=== PATIENT | female | born 1995 | race Caucasian/White ===

== ENCOUNTER 2018-07-30 17:17 | Emergency (ER) | payer OTHER ==
[2018-07-30] MEDS ORDERED: ONDANSETRON ODT 4 MG TAB PO STA (18:01)
--- NOTE | 2018-07-30 18:10 | ED ---
Abdominal Pain HPI - General Source: patient Mode of arrival: ambulatory Limitations: no limitations - History of Present Illness MD Complaint: abdominal pain, flank pain -: week(s) (1) Location: diffuse, RLQ Quality: cramping Consistency: constant Improves With: nothing Worsens With: nothing Associated Symptoms: nausea <Mabel Bah - Last Filed: 07/30/18 18:04> <Mehul Cortez - Last Filed: 07/30/18 21:43> - General Chief Complaint: Abdominal Pain Stated Complaint: abdominal pain Time Seen by Provider: 07/30/18 17:42 - History of Present Illness Initial Comments: 22-year-old female presents with diffuse abdominal pain for the last week. Patient states she always has some generalized abdominal discomfort due to having some difficulty after having C. diff but this is different. Patient states feels on the right lower area of the most but it's diffuse. Patient states she feels slightly nauseous. Patient states she feels hungry but since she eats she gets nauseous and can eat. Patient has not been vomiting. Patient denies any dysuria but does have some right-sided back pain. Patient has had an infected ovarian cyst as well. Patient has had her appendix out. Patient is on Mirena for control. Patient has not had a regular cycle in about 3 years. Patient did have a colonoscopy about in the last year which did have polyps patient does not have to get another one for 3 years. Patient able to pass gas. Patient denies any abnormal vaginal discharge. No change of bowel movements patient had a normal bowel movement today. (Mabel Bah) - Related Data Allergies Allergy/AdvReac Type Severity Reaction Status Date / Time nitrofurantoin Allergy Nausea & Verified 07/30/18 17:26 Vomiting Review of Systems ROS Other: All systems not noted in ROS Statement are negative. Constitutional: Denies: fever, chills Gastrointestinal: Reports: abdominal pain, nausea. Denies: vomiting, diarrhea, constipation, hematemesis Skin: Denies: rash Neurological: Denies: headache <Mabel Bah - Last Filed: 07/30/18 18:04> ROS Other: All systems not noted in ROS Statement are negative. <Mehul Cortez - Last Filed: 07/30/18 21:43> ROS Statement: Those systems with pertinent positive or pertinent negative responses have been documented in the HPI. Past Medical History Additional Past Medical History / Comment(s): Ovarian Cyst, pneuopericardium & pneumomediastinum 2017, mass on colon (believed benign) History of Any Multi-Drug Resistant Organisms: C-DIFF Date of last positivie culture/infection: 04/2017 MDRO Source:: stool Past Surgical History: Appendectomy Additional Past Surgical History / Comment(s): colonoscopy with polyp removal Past Psychological History: No Psychological Hx Reported Smoking Status: Never smoker Past Alcohol Use History: Occasional Past Drug Use History: None Reported <Mabel Bah - Last Filed: 07/30/18 18:04> General Exam Limitations: no limitations General appearance: alert, in no apparent distress Head exam: Present: atraumatic, normocephalic, normal inspection Eye exam: Present: normal appearance, PERRL, EOMI. Absent: scleral icterus, conjunctival injection, periorbital swelling ENT exam: Present: normal exam, mucous membranes moist Respiratory exam: Present: normal lung sounds bilaterally. Absent: respiratory distress, wheezes, rales, rhonchi, stridor Cardiovascular Exam: Present: regular rate, normal rhythm, normal heart sounds. Absent: systolic murmur, diastolic murmur, rubs, gallop, clicks GI/Abdominal exam: Present: soft, tenderness (general x 4 ), guarding (general x 4), normal bowel sounds. Absent: distended, rebound, rigid Neurological exam: Present: alert, oriented X3, CN II-XII intact Psychiatric exam: Present: normal affect, normal mood Skin exam: Present: warm, dry, intact, normal color. Absent: rash <Mabel Bah - Last Filed: 07/30/18 18:04> Vital Signs 07/30/18 07/30/18 17:19 20:27 Temperature 98.3 F 98.9 F Pulse Rate 90 91 Respiratory 16 18 Rate Blood Pressure 119/77 115/55 O2 Sat by Pulse 100 99 Oximetry Medical Decision Making <Mabel Bah - Last Filed: 07/30/18 18:04> - Lab Data Result diagrams: 07/30/18 17:41 07/30/18 17:41 <Mehul Cortez - Last Filed: 07/30/18 21:43> - Medical Decision Making 22-year-old female presenting with generalized abdominal pain for the past one week. Patient's care was signed out awaiting imaging and laboratory studies. Patient reevaluated, she has soft abdomen, mild diffuse tenderness, no rebound or guarding. Patient is overall well-appearing with stable vital signs. CBC, CMP, urinalysis are unremarkable. X-rays obtained which is negative for obstruction or free air, patient does receive an ultrasound of the abdomen which is negative for any acute findings including normal gallbladder with no signs of acute cholecystitis. She is status post appendectomy. Symptoms do appear to be somewhat chronic in nature. She states she has had ongoing abdominal pain for some time. She will follow-up with her primary care physician who is aware of these symptoms. Trauma with worsening or changing symptoms. (Mehul Cortez) - Lab Data Lab Results 07/30/18 07/30/18 07/30/18 Range/Units 17:41 17:41 17:41 WBC 10.6 (3.8-10.6) k/uL RBC 4.67 (3.80-5.40) m/uL Hgb 14.3 (11.4-16.0) gm/dL Hct 42.9 (34.0-46.0) % MCV 91.9 (80.0-100.0) fL MCH 30.6 (25.0-35.0) pg MCHC 33.4 (31.0-37.0) g/dL RDW 12.2 (11.5-15.5) % Plt Count 355 (150-450) k/uL Neutrophils % 68 % Lymphocytes % 25 % Monocytes % 4 % Eosinophils % 1 % Basophils % 1 % Neutrophils # 7.2 (1.3-7.7) k/uL Lymphocytes # 2.7 (1.0-4.8) k/uL Monocytes # 0.4 (0-1.0) k/uL Eosinophils # 0.1 (0-0.7) k/uL Basophils # 0.1 (0-0.2) k/uL Sodium 140 (137-145) mmol/L Potassium 3.7 (3.5-5.1) mmol/L Chloride 105 (98-107) mmol/L Carbon Dioxide 24 (22-30) mmol/L Anion Gap 11 mmol/L BUN 8 (7-17) mg/dL Creatinine 0.61 (0.52-1.04) mg/dL Est GFR (CKD-EPI)AfAm >90 (>60 ml/min/1.73 sqM) Est GFR (CKD-EPI)NonAf >90 (>60 ml/min/1.73 sqM) Glucose 90 (74-99) mg/dL Calcium 9.8 (8.4-10.2) mg/dL Total Bilirubin 0.5 (0.2-1.3) mg/dL AST 24 (14-36) U/L ALT 30 (9-52) U/L Alkaline Phosphatase 70 (38-126) U/L Total Protein 8.4 H (6.3-8.2) g/dL Albumin 4.7 (3.5-5.0) g/dL Amylase 57 (30-110) U/L Lipase 58 (23-300) U/L Urine Color Urine Appearance (Clear) Urine pH (5.0-8.0) Ur Specific [place] (1.001-1.035) Urine Protein (Negative) Urine Glucose (UA) (Negative) Urine Ketones (Negative) Urine Blood (Negative) Urine Nitrite (Negative) Urine Bilirubin (Negative) Urine Urobilinogen (<2.0) mg/dL Ur Leukocyte Esterase (Negative) Urine RBC (0-5) /hpf Urine WBC (0-5) /hpf Ur Squamous Epith Cells (0-4) /hpf Urine Mucus (None) /hpf Urine HCG, Qual Not Detected (Not Detectd) 07/30/18 Range/Units 17:41 WBC (3.8-10.6) k/uL RBC (3.80-5.40) m/uL Hgb (11.4-16.0) gm/dL Hct (34.0-46.0) % MCV (80.0-100.0) fL MCH (25.0-35.0) pg MCHC (31.0-37.0) g/dL RDW (11.5-15.5) % Plt Count (150-450) k/uL Neutrophils % % Lymphocytes % % Monocytes % % Eosinophils % % Basophils % % Neutrophils # (1.3-7.7) k/uL Lymphocytes # (1.0-4.8) k/uL Monocytes # (0-1.0) k/uL Eosinophils # (0-0.7) k/uL Basophils # (0-0.2) k/uL Sodium (137-145) mmol/L Potassium (3.5-5.1) mmol/L Chloride (98-107) mmol/L Carbon Dioxide (22-30) mmol/L Anion Gap mmol/L BUN (7-17) mg/dL Creatinine (0.52-1.04) mg/dL Est GFR (CKD-EPI)AfAm (>60 ml/min/1.73 sqM) Est GFR (CKD-EPI)NonAf (>60 ml/min/1.73 sqM) Glucose (74-99) mg/dL Calcium (8.4-10.2) mg/dL Total Bilirubin (0.2-1.3) mg/dL AST (14-36) U/L ALT (9-52) U/L Alkaline Phosphatase (38-126) U/L Total Protein (6.3-8.2) g/dL Albumin (3.5-5.0) g/dL Amylase (30-110) U/L Lipase (23-300) U/L Urine Color Yellow Urine Appearance Cloudy H (Clear) Urine pH 6.5 (5.0-8.0) Ur Specific [place]ner 1.026 (1.001-1.035) Urine Protein 1+ H (Negative) Urine Glucose (UA) Negative (Negative) Urine Ketones 1+ H (Negative) Urine Blood Negative (Negative) Urine Nitrite Negative (Negative) Urine Bilirubin Negative (Negative) Urine Urobilinogen <2.0 (<2.0) mg/dL Ur Leukocyte Esterase Negative (Negative) Urine RBC 1 (0-5) /hpf Urine WBC 2 (0-5) /hpf Ur Squamous Epith Cells 11 H (0-4) /hpf Urine Mucus Moderate H (None) /hpf Urine HCG, Qual (Not Detectd) Disposition <Mabel Bah - Last Filed: 07/30/18 18:04> Is patient prescribed a controlled substance at d/c from ED?: No Time of Disposition: 21:43 <Mehul Cortez - Last Filed: 07/30/18 21:43> Clinical Impression: Abdominal pain Disposition: HOME SELF-CARE Condition: Good Instructions: Abdominal Pain (ED) Referrals: Miguel Angel Church MD [Primary Care Provider] - 1-2 days
[2018-07-30 18:16] LABS: Basophils # (A) 0.1 k/uL (0-0.2); Basophils % (A) 1 %; Eosinophils # (A) 0.1 k/uL (0-0.7); Eosinophils % (A) 1 %; HCT 42.9 % (34.0-46.0); HGB 14.3 gm/dL (11.4-16.0); Lymphocytes # (A) 2.7 k/uL (1.0-4.8); Lymphocytes % (A) 25 %; MCH 30.6 pg (25.0-35.0); MCHC 33.4 g/dL (31.0-37.0); MCV 91.9 fL (80.0-100.0); Mean Platelet Volume 6.9; Monocytes # (A) 0.4 k/uL (0-1.0); Monocytes % (A) 4 %; Neutrophils # (A) 7.2 k/uL (1.3-7.7); Neutrophils % (A) 68 %; Platelet Count 355 k/uL (150-450); RBC 4.67 m/uL (3.80-5.40); RDW 12.2 % (11.5-15.5); WBC 10.6 k/uL (3.8-10.6)
[2018-07-30 18:33] LABS: ALT 30 U/L (9-52); AST 24 U/L (14-36); Albumin 4.7 g/dL (3.5-5.0); Alkaline Phosphatase 70 U/L (38-126); Amylase 57 U/L (30-110); Anion Gap 11 mmol/L; Blood Urea Nitrogen 8 mg/dL (7-17); Calcium 9.8 mg/dL (8.4-10.2); Carbon Dioxide 24 mmol/L (22-30); Chloride 105 mmol/L (98-107); Glucose 90 mg/dL (74-99); Lipase 58 U/L (23-300); Potassium 3.7 mmol/L (3.5-5.1); Sodium 140 mmol/L (137-145); Total Bilirubin 0.5 mg/dL (0.2-1.3); Total Protein 8.4 g/dL (6.3-8.2)
[2018-07-30 18:44] LABS: Appearance,Urine Cloudy (Clear); Bilirubin,Urine Negative (Negative); Blood,Urine Negative (Negative); Color,Urine Yellow; Glucose,Urine (UA) Negative (Negative); Ketones,Urine 1+ (Negative); Leukocyte Esterase,Urine Negative (Negative); Mucus,Urine Moderate /hpf; Nitrite,Urine Negative (Negative); PH, Urine 6.5 (5.0-8.0); Protein,Urine 1+ (Negative); RBC,Urine 1 /hpf (0-5); Specific Gravity,Urine 1.026 (1.001-1.035); Squamous Epithelial Cell,Urine 11 /hpf (0-4); Urobilinogen,Urine <2.0 mg/dL (<2.0); WBC,Urine 2 /hpf (0-5)
--- NOTE | 2018-07-30 19:22 | XR ---
EXAMINATION TYPE: XR abdomen complete w decub DATE OF EXAM: 07/30/2018 COMPARISON: NONE HISTORY: Abdominal pain TECHNIQUE: Supine and upright abdomen FINDINGS: Bowel gas pattern is normal. There is no sign of intestinal obstruction or pneumoperitoneum. Fecal pa ttern is normal. There is IUD noted. There are no pathologic calcifications over the kidneys. Lung ba ses are clear. IMPRESSION: Nonacute abdomen.
[2018-07-30 20:28] VITALS: RESP 18
--- NOTE | 2018-07-30 20:40 | US ---
EXAMINATION TYPE: US abdomen complete DATE OF EXAM: 07/30/2018 COMPARISON: NONE CLINICAL HISTORY: Pain. EXAM MEASUREMENTS: Liver Length: 13.9 cm Gallbladder Wall: 0.2 cm CBD: 0.4 cm Spleen: 9.4 cm Right Kidney: 9.9 x 3.6 x 5.1 cm Left Kidney: 10.5 x 5.0 x 5.1 cm Pancreas: wnl Liver: wnl Gallbladder: wnl Evidence for sonographic Sal[place]'s sign: no CBD: wnl Spleen: wnl Right Kidney: wnl Left Kidney: wnl Upper IVC: wnl Abd Aorta: wnl There is no free fluid. There is a sonolucent gallbladder. IMPRESSION: Normal complete abdominal sonogram. No gallstones or dilated ducts.
[2018-07-30 21:49] VITALS: BP 113/79; PULSE 83; TEMP 97.8
== END 2018-07-30 21:49 | disposition home or self-care (01) ==
LOC: EC 17:17
DX: R10.84 Generalized abdominal pain (principal); R11.0 Nausea; Z87.42 Personal history of other diseases of the female genital tract; Z88.1 Allergy status to other antibiotic agents; Z90.49 Acquired absence of other specified parts of digestive tract
CPT/HCPCS: 36415; 74021; 76700; 80053; 81001; 81025; 82150; 83690; 85025; 99284

== ENCOUNTER 2021-03-19 18:41 | Emergency (ER) | payer OTHER ==
[2021-03-19 19:18] VITALS: RESP 18
[2021-03-19 19:38] LABS: Appearance,Urine Clear (Clear); Bilirubin,Urine Negative (Negative); Blood,Urine Negative (Negative); Color,Urine Colorless; Glucose,Urine (UA) Negative (Negative); Ketones,Urine Negative (Negative); Leukocyte Esterase,Urine Negative (Negative); Nitrite,Urine Negative (Negative); PH, Urine 6.5 (5.0-8.0); Protein,Urine Negative (Negative); Specific Gravity,Urine 1.003 (1.001-1.035); Urobilinogen,Urine <2.0 mg/dL (<2.0)
[2021-03-19 22:16] LABS: Basophils % (A) 0 %; Eosinophils # (A) 0.1 k/uL (0-0.7); Eosinophils % (A) 1 %; HCT 38.4 % (34.0-46.0); HGB 13.5 gm/dL (11.4-16.0); Lymphocytes # (A) 3.4 k/uL (1.0-4.8); Lymphocytes % (A) 34 %; MCH 31.9 pg (25.0-35.0); MCHC 35.2 g/dL (31.0-37.0); MCV 90.7 fL (80.0-100.0); Mean Platelet Volume 7.4; Monocytes # (A) 0.3 k/uL (0-1.0); Monocytes % (A) 3 %; Neutrophils # (A) 6.2 k/uL (1.3-7.7); Neutrophils % (A) 61 %; Platelet Count 284 k/uL (150-450); RBC 4.24 m/uL (3.80-5.40); RDW 11.9 % (11.5-15.5); WBC 10.1 k/uL (3.8-10.6)
[2021-03-19 22:29] LABS: ALT 15 U/L (4-34); AST 26 U/L (14-36); African American GFR (CKD) >90 (>60 ml/min/1.73 sqM); Albumin 4.6 g/dL (3.5-5.0); Alkaline Phosphatase 57 U/L (38-126); Anion Gap 9 mmol/L; Blood Urea Nitrogen 16 mg/dL (7-17); Calcium 9.7 mg/dL (8.4-10.2); Carbon Dioxide 23 mmol/L (22-30); Chloride 104 mmol/L (98-107); Glucose 85 mg/dL (74-99); Lipase 107 U/L (23-300); Non-African American GFR(CKD) >90 (>60 ml/min/1.73 sqM); Sodium 136 mmol/L (137-145); Total Bilirubin 0.5 mg/dL (0.2-1.3); Total Protein 7.6 g/dL (6.3-8.2)
--- NOTE | 2021-03-19 22:44 | US ---
EXAMINATION TYPE: US transvaginal DATE OF EXAM: 03/19/2021 COMPARISON: NONE CLINICAL HISTORY: Hx ovarian cyst, right lower quadrant pain. patient has RLQ pain x 2 weeks, h/o lar ge cysts that have required surgery in the past, Mirena IUD 2018, G0, irregular cycles since IUD TECHNIQUE: TV. Transvaginal sonographic images Date of LMP: irregular, IUD EXAM MEASUREMENTS: Uterus: 7.1 x 3.8 x 3.3 cm Endometrial Stripe: 0.4 cm Right Ovary: 7.4 x 8.0 x 5.4 cm Left Ovary: 2.9 x 2.9 x 1.8 cm 1. Uterus: Anteverted wnl 2. Endometrium: IUD noted within E[facility], wnl 3. Right Ovary: 6.0 x 7.0 x 5.0cm simple cyst seen 4. Left Ovary: wnl Spectral, color and waveform doppler imaging shows good arterial and venous flow within the ovaries ; there is no evidence for ovarian torsion. 5. Bilateral Adnexa: wnl 6. Posterior cul-de-sac: wnl IMPRESSION: There is a large simple cyst on the right ovary. No evidence of ovarian torsion. Normal uterus. IUD i s in good position. No free fluid.
--- NOTE | 2021-03-19 23:00 | ED ---
Abdominal Pain HPI - General Chief Complaint: Abdominal Pain Stated Complaint: Ovarian cyst Time Seen by Provider: 03/19/21 20:44 Source: patient Mode of arrival: ambulatory Limitations: no limitations - History of Present Illness Initial Comments: 25-year-old female patient presents to the emergency department today for evaluation of right lower quadrant abdominal pain. States she does have history of ovarian cysts, has had previous ovarian cyst surgery and appendectomy. States for the last couple of weeks she has been having intermittent pain to the area. Does report normal bowel movements. Denies any hematuria, dysuria, urinary frequency, urinary urgency. Denies any pain radiation to her back. States she is not taking any medication for pain currently. Denies fever or chills. Denies chance of . States she does have an IUD and is concerned about its positioning. Patient denies any recent rash, cough, shortness of breath, chest pain, nausea, vomiting, diarrhea, constipation, back pain, numbness, tingling, dizziness, weakness, headache, visual changes, or any other complaints. - Related Data Home Medications Medication Instructions Recorded Confirmed Multivitamins, Thera [Multivitamin 1 tab PO DAILY 03/19/21 03/19/21 (formulary)] Allergies Allergy/AdvReac Type Severity Reaction Status Date / Time nitrofurantoin Allergy Nausea & Verified 03/19/21 22:38 Vomiting Review of Systems ROS Statement: Those systems with pertinent positive or pertinent negative responses have been documented in the HPI. ROS Other: All systems not noted in ROS Statement are negative. Past Medical History Past Medical History: No Reported History Additional Past Medical History / Comment(s): Ovarian Cyst, pneuopericardium & pneumomediastinum 2017, mass on colon (believed benign) History of Any Multi-Drug Resistant Organisms: C-DIFF Date of last positivie culture/infection: 04/2017 MDRO Source:: stool Past Surgical History: Appendectomy Additional Past Surgical History / Comment(s): colonoscopy with polyp removal Past Psychological History: Anxiety Smoking Status: Never smoker Past Alcohol Use History: Occasional Past Drug Use History: Marijuana General Exam Limitations: no limitations General appearance: alert, in no apparent distress, other (This is a well- developed, well-nourished adult female patient in no acute distress. Vital signs upon presentation are temperature 98.1F, pulse 73, respirations 18, blood pressure 114/77, pulse ox 99% on room air.) Eye exam: Present: normal appearance, PERRL, EOMI. Absent: scleral icterus, conjunctival injection, periorbital swelling ENT exam: Present: normal exam, normal oropharynx, mucous membranes moist Respiratory exam: Present: normal lung sounds bilaterally. Absent: respiratory distress, wheezes, rales, rhonchi, stridor Cardiovascular Exam: Present: regular rate, normal rhythm, normal heart sounds. Absent: systolic murmur, diastolic murmur, rubs, gallop, clicks GI/Abdominal exam: Present: soft, tenderness (Right lower quadrant tenderness), normal bowel sounds. Absent: distended, guarding, rebound, rigid Neurological exam: Present: alert, oriented X3, CN II-XII intact Psychiatric exam: Present: normal affect, normal mood Skin exam: Present: warm, dry, intact, normal color. Absent: rash Course Vital Signs 03/19/21 03/19/21 19:15 23:10 Temperature 98.1 F 98 F Pulse Rate 73 76 Respiratory 18 18 Rate Blood Pressure 114/77 116/76 O2 Sat by Pulse 99 100 Oximetry Medical Decision Making - Medical Decision Making 25-year-old female patient presents to the emergency department today for evaluation of right lower quadrant abdominal pain. She is concerned about possible ovarian cyst or malpositioning of her IUD. Physical examination did reveal right lower quadrant abdominal tenderness. Labs reviewed and are unremarkable. Urinalysis is negative for infection. She is not . Ultrasound was obtained and did reveal a 7 cm cyst of the right ovary, appears simple. IUD is in good position. I did discuss findings and results with her. She be discharged follow-up with her orthotic technician for further evaluation. We did discuss risk of torsion she is instructed to return if her pain worsens or changes. Return parameters were discussed in detail. She verbalizes understanding and agrees with this plan. Case is discussed with my attending Dr. Tadeo. - Lab Data Result diagrams: 03/19/21 21:53 03/19/21 21:53 Lab Results 03/19/21 03/19/21 03/19/21 Range/Units 19:24 19:24 21:53 WBC 10.1 (3.8-10.6) k/uL RBC 4.24 (3.80-5.40) m/uL Hgb 13.5 (11.4-16.0) gm/dL Hct 38.4 (34.0-46.0) % MCV 90.7 (80.0-100.0) fL MCH 31.9 (25.0-35.0) pg MCHC 35.2 (31.0-37.0) g/dL RDW 11.9 (11.5-15.5) % Plt Count 284 (150-450) k/uL MPV 7.4 Neutrophils % 61 % Lymphocytes % 34 % Monocytes % 3 % Eosinophils % 1 % Basophils % 0 % Neutrophils # 6.2 (1.3-7.7) k/uL Lymphocytes # 3.4 (1.0-4.8) k/uL Monocytes # 0.3 (0-1.0) k/uL Eosinophils # 0.1 (0-0.7) k/uL Basophils # 0.0 (0-0.2) k/uL Sodium (137-145) mmol/L Potassium (3.5-5.1) mmol/L Chloride (98-107) mmol/L Carbon Dioxide (22-30) mmol/L Anion Gap mmol/L BUN (7-17) mg/dL Creatinine (0.52-1.04) mg/dL Est GFR (CKD-EPI)AfAm (>60 ml/min/1.73 sqM) Est GFR (CKD-EPI)NonAf (>60 ml/min/1.73 sqM) Glucose (74-99) mg/dL Calcium (8.4-10.2) mg/dL Total Bilirubin (0.2-1.3) mg/dL AST (14-36) U/L ALT (4-34) U/L Alkaline Phosphatase (38-126) U/L Total Protein (6.3-8.2) g/dL Albumin (3.5-5.0) g/dL Lipase (23-300) U/L Urine Color Colorless Urine Appearance Clear (Clear) Urine pH 6.5 (5.0-8.0) Ur Specific [place] 1.003 (1.001-1.035) Urine Protein Negative (Negative) Urine Glucose (UA) Negative (Negative) Urine Ketones Negative (Negative) Urine Blood Negative (Negative) Urine Nitrite Negative (Negative) Urine Bilirubin Negative (Negative) Urine Urobilinogen <2.0 (<2.0) mg/dL Ur Leukocyte Esterase Negative (Negative) Urine HCG, Qual Not Detected (Not Detectd) 03/19/21 Range/Units 21:53 WBC (3.8-10.6) k/uL RBC (3.80-5.40) m/uL Hgb (11.4-16.0) gm/dL Hct (34.0-46.0) % MCV (80.0-100.0) fL MCH (25.0-35.0) pg MCHC (31.0-37.0) g/dL RDW (11.5-15.5) % Plt Count (150-450) k/uL MPV Neutrophils % % Lymphocytes % % Monocytes % % Eosinophils % % Basophils % % Neutrophils # (1.3-7.7) k/uL Lymphocytes # (1.0-4.8) k/uL Monocytes # (0-1.0) k/uL Eosinophils # (0-0.7) k/uL Basophils # (0-0.2) k/uL Sodium 136 L (137-145) mmol/L Potassium 4.0 (3.5-5.1) mmol/L Chloride 104 (98-107) mmol/L Carbon Dioxide 23 (22-30) mmol/L Anion Gap 9 mmol/L BUN 16 (7-17) mg/dL Creatinine 0.72 (0.52-1.04) mg/dL Est GFR (CKD-EPI)AfAm >90 (>60 ml/min/1.73 sqM) Est GFR (CKD-EPI)NonAf >90 (>60 ml/min/1.73 sqM) Glucose 85 (74-99) mg/dL Calcium 9.7 (8.4-10.2) mg/dL Total Bilirubin 0.5 (0.2-1.3) mg/dL AST 26 (14-36) U/L ALT 15 (4-34) U/L Alkaline Phosphatase 57 (38-126) U/L Total Protein 7.6 (6.3-8.2) g/dL Albumin 4.6 (3.5-5.0) g/dL Lipase 107 (23-300) U/L Urine Color Urine Appearance (Clear) Urine pH (5.0-8.0) Ur Specific [place] (1.001-1.035) Urine Protein (Negative) Urine Glucose (UA) (Negative) Urine Ketones (Negative) Urine Blood (Negative) Urine Nitrite (Negative) Urine Bilirubin (Negative) Urine Urobilinogen (<2.0) mg/dL Ur Leukocyte Esterase (Negative) Urine HCG, Qual (Not Detectd) - Radiology Data Radiology results: report reviewed, image reviewed Transvaginal ultrasound was obtained. Report was reviewed in its entirety. Impression by Dr. Infante shows large simple cyst on the right ovary measuring 6.0 x 7 x 5 cm. No evidence of ovarian torsion. Normal uterus. IUD is in good position. No free fluid. Disposition Clinical Impression: Right ovarian cyst Disposition: HOME SELF-CARE Condition: Good Instructions (If sedation given, give patient instructions): Ovarian Cyst (ED) Additional Instructions: Follow up with OBGYN for recheck as soon as possible. Return for any new, worsening, or concerning symptoms. Is patient prescribed a controlled substance at d/c from ED?: No Referrals: Miguel Angel Church MD [Primary Care Provider] - 1-2 days Time of Disposition: 23:00
[2021-03-19] MEDS ORDERED: ACET/COD 300 MG/30 MG STARTER PACK 6 TAB BTL PO STA (23:02)
[2021-03-19 23:19] VITALS: BP 116/76; PULSE 76; TEMP 98
== END 2021-03-19 23:10 | disposition home or self-care (01) ==
LOC: EC 18:41
DX: N83.291 Other ovarian cyst, right side (principal); F41.9 Anxiety disorder, unspecified; F12.90 Cannabis use, unspecified, uncomplicated
CPT/HCPCS: 36415; 76830; 80053; 81003; 81025; 83690; 85025; 99284

== ENCOUNTER 2021-09-08 02:42 | Emergency (ER) | payer OTHER ==
[2021-09-08 03:00] VITALS: TEMP 98.2
[2021-09-08] MEDS ORDERED: SODIUM CHLORIDE 0.9% 1,000 ML IV STA (03:28)
[2021-09-08] MEDS ORDERED: KETOROLAC 15 MG/ML 1 ML VIAL IVP STA (03:28)
[2021-09-08] MEDS ORDERED: METOCLOPRAMIDE 5 MG/ML 2 ML VIAL IVP STA (03:28)
[2021-09-08 03:57] LABS: Basophils % (A) 0 %; Eosinophils # (A) 0.1 k/uL (0-0.7); Eosinophils % (A) 0 %; HCT 41.7 % (34.0-46.0); HGB 14.2 gm/dL (11.4-16.0); Lymphocytes # (A) 1.4 k/uL (1.0-4.8); Lymphocytes % (A) 9 %; MCH 31.9 pg (25.0-35.0); MCV 93.7 fL (80.0-100.0); Mean Platelet Volume 7.5; Monocytes # (A) 0.3 k/uL (0-1.0); Monocytes % (A) 2 %; Neutrophils % (A) 88 %; Platelet Count 404 k/uL (150-450); RBC 4.45 m/uL (3.80-5.40); RDW 11.7 % (11.5-15.5); WBC 14.8 k/uL (3.8-10.6)
[2021-09-08 04:09] LABS: Appearance,Urine Cloudy (Clear); Bacteria,Urine Occasional /hpf; Bilirubin,Urine Negative (Negative); Blood,Urine Trace (Negative); Color,Urine Yellow; Glucose,Urine (UA) Negative (Negative); Ketones,Urine 2+ (Negative); Leukocyte Esterase,Urine Negative (Negative); Mucus,Urine Many /hpf; Nitrite,Urine Negative (Negative); PH, Urine 5.5 (5.0-8.0); Protein,Urine 1+ (Negative); RBC,Urine 3 /hpf (0-5); Specific Gravity,Urine 1.031 (1.001-1.035); Squamous Epithelial Cell,Urine 5 /hpf (0-4); WBC,Urine 6 /hpf (0-5)
[2021-09-08 04:26] LABS: ALT 13 U/L (4-34); AST 22 U/L (14-36); African American GFR (CKD) >90 (>60 ml/min/1.73 sqM); Albumin 4.7 g/dL (3.5-5.0); Alkaline Phosphatase 59 U/L (38-126); Amylase 71 U/L (30-110); Anion Gap 12 mmol/L; Blood Urea Nitrogen 12 mg/dL (7-17); Calcium 9.9 mg/dL (8.4-10.2); Carbon Dioxide 22 mmol/L (22-30); Chloride 101 mmol/L (98-107); Glucose 125 mg/dL (74-99); Lipase 56 U/L (23-300); Non-African American GFR(CKD) >90 (>60 ml/min/1.73 sqM); Potassium 3.8 mmol/L (3.5-5.1); Sodium 135 mmol/L (137-145); Total Bilirubin 0.4 mg/dL (0.2-1.3); Total Protein 8.5 g/dL (6.3-8.2)
--- NOTE | 2021-09-08 04:46 | XR ---
EXAMINATION TYPE: XR KUB DATE OF EXAM: 09/08/2021 COMPARISON: 07/20/2018 HISTORY: Abdominal pain TECHNIQUE: FINDINGS: Single upright view shows no sign of intestinal obstruction or pneumoperitoneum. Fecal kadie brandi is normal. There is no sign of a mass. There are no pathologic calcifications over the kidneys. B waldo structures are intact. IMPRESSION: Nonacute abdomen. No adverse change.
--- NOTE | 2021-09-08 06:02 | ED ---
Abdominal Pain HPI - General Chief Complaint: Abdominal Pain Stated Complaint: NVD Time Seen by Provider: 09/08/21 03:21 Source: patient Mode of arrival: ambulatory - History of Present Illness MD Complaint: abdominal pain -: days(s) Location: diffuse Radiation: none Migration to: no migration Severity: moderate Quality: cramping, aching Consistency: intermittent Improves With: nothing Worsens With: nothing Associated Symptoms: nausea, constipation - Related Data Home Medications Medication Instructions Recorded Confirmed Multivitamins, Thera [Multivitamin 1 tab PO DAILY 03/19/21 03/19/21 (formulary)] Previous Rx's Medication Instructions Recorded Dicyclomine [Bentyl] 20 mg PO QID #15 tablet 09/08/21 Allergies Allergy/AdvReac Type Severity Reaction Status Date / Time nitrofurantoin Allergy Nausea & Verified 09/08/21 03:00 Vomiting Review of Systems ROS Statement: Those systems with pertinent positive or pertinent negative responses have been documented in the HPI. ROS Other: All systems not noted in ROS Statement are negative. Constitutional: Denies: fever, chills Respiratory: Denies: cough, dyspnea Cardiovascular: Denies: chest pain, palpitations Gastrointestinal: Reports: abdominal pain, nausea, constipation. Denies: vomit ing, hematemesis, melena, hematochezia Genitourinary: Denies: dysuria, hematuria Musculoskeletal: Denies: back pain Skin: Denies: rash Neurological: Denies: headache, weakness, numbness Past Medical History Past Medical History: No Reported History Additional Past Medical History / Comment(s): Ovarian Cyst, pneuopericardium & pneumomediastinum 2017, mass on colon (believed benign), CDiff 2017, IBS History of Any Multi-Drug Resistant Organisms: C-DIFF Date of last positivie culture/infection: 04/2017 MDRO Source:: stool Past Surgical History: Appendectomy Additional Past Surgical History / Comment(s): colonoscopy with polyp removal Past Psychological History: Anxiety Smoking Status: Never smoker Past Alcohol Use History: Occasional Past Drug Use History: Marijuana General Exam General appearance: alert, in no apparent distress Head exam: Present: atraumatic, normocephalic Eye exam: Present: normal appearance. Absent: scleral icterus, conjunctival injection ENT exam: Present: normal oropharynx Neck exam: Present: normal inspection Respiratory exam: Present: normal lung sounds bilaterally. Absent: respiratory distress, wheezes, rales, rhonchi, stridor Cardiovascular Exam: Present: regular rate, normal rhythm, normal heart sounds. Absent: systolic murmur, diastolic murmur, rubs, gallop GI/Abdominal exam: Present: soft, tenderness (mild diffuse tenderness). Absent: distended, guarding, rebound, rigid, mass, pulsatile mass, hernia Extremities exam: Present: normal inspection, normal capillary refill. Absent: pedal edema, calf tenderness Back exam: Present: normal inspection. Absent: CVA tenderness (R), CVA tenderness (L) Neurological exam: Present: alert Skin exam: Present: warm, dry, intact, normal color. Absent: rash Course Vital Signs 09/08/21 09/08/21 02:55 06:36 Temperature 98.2 F Pulse Rate 83 78 Respiratory 24 18 Rate Blood Pressure 95/60 127/84 O2 Sat by Pulse 98 99 Oximetry Medical Decision Making - Lab Data Result diagrams: 09/08/21 03:38 09/08/21 03:38 Lab Results 09/08/21 09/08/21 09/08/21 Range/Units 03:38 03:38 03:38 WBC 14.8 H (3.8-10.6) k/uL RBC 4.45 (3.80-5.40) m/uL Hgb 14.2 (11.4-16.0) gm/dL Hct 41.7 (34.0-46.0) % MCV 93.7 (80.0-100.0) fL MCH 31.9 (25.0-35.0) pg MCHC 34.0 (31.0-37.0) g/dL RDW 11.7 (11.5-15.5) % Plt Count 404 (150-450) k/uL MPV 7.5 Neutrophils % 88 % Lymphocytes % 9 % Monocytes % 2 % Eosinophils % 0 % Basophils % 0 % Neutrophils # 13.0 H (1.3-7.7) k/uL Lymphocytes # 1.4 (1.0-4.8) k/uL Monocytes # 0.3 (0-1.0) k/uL Eosinophils # 0.1 (0-0.7) k/uL Basophils # 0.0 (0-0.2) k/uL Sodium (137-145) mmol/L Potassium (3.5-5.1) mmol/L Chloride (98-107) mmol/L Carbon Dioxide (22-30) mmol/L Anion Gap mmol/L BUN (7-17) mg/dL Creatinine (0.52-1.04) mg/dL Est GFR (CKD-EPI)AfAm (>60 ml/min/1.73 sqM) Est GFR (CKD-EPI)NonAf (>60 ml/min/1.73 sqM) Glucose (74-99) mg/dL Calcium (8.4-10.2) mg/dL Total Bilirubin (0.2-1.3) mg/dL AST (14-36) U/L ALT (4-34) U/L Alkaline Phosphatase (38-126) U/L Total Protein (6.3-8.2) g/dL Albumin (3.5-5.0) g/dL Amylase (30-110) U/L Lipase (23-300) U/L Urine Color Yellow Urine Appearance Cloudy H (Clear) Urine pH 5.5 (5.0-8.0) Ur Specific [place] 1.031 (1.001-1.035) Urine Protein 1+ H (Negative) Urine Glucose (UA) Negative (Negative) Urine Ketones 2+ H (Negative) Urine Blood Trace H (Negative) Urine Nitrite Negative (Negative) Urine Bilirubin Negative (Negative) Urine Urobilinogen 3.0 (<2.0) mg/dL Ur Leukocyte Esterase Negative (Negative) Urine RBC 3 (0-5) /hpf Urine WBC 6 H (0-5) /hpf Ur Squamous Epith Cells 5 H (0-4) /hpf Urine Bacteria Occasional H (None) /hpf Urine Mucus Many H (None) /hpf Urine HCG, Qual Not Detected (Not Detectd) 09/08/21 Range/Units 03:38 WBC (3.8-10.6) k/uL RBC (3.80-5.40) m/uL Hgb (11.4-16.0) gm/dL Hct (34.0-46.0) % MCV (80.0-100.0) fL MCH (25.0-35.0) pg MCHC (31.0-37.0) g/dL RDW (11.5-15.5) % Plt Count (150-450) k/uL MPV Neutrophils % % Lymphocytes % % Monocytes % % Eosinophils % % Basophils % % Neutrophils # (1.3-7.7) k/uL Lymphocytes # (1.0-4.8) k/uL Monocytes # (0-1.0) k/uL Eosinophils # (0-0.7) k/uL Basophils # (0-0.2) k/uL Sodium 135 L (137-145) mmol/L Potassium 3.8 (3.5-5.1) mmol/L Chloride 101 (98-107) mmol/L Carbon Dioxide 22 (22-30) mmol/L Anion Gap 12 mmol/L BUN 12 (7-17) mg/dL Creatinine 0.70 (0.52-1.04) mg/dL Est GFR (CKD-EPI)AfAm >90 (>60 ml/min/1.73 sqM) Est GFR (CKD-EPI)NonAf >90 (>60 ml/min/1.73 sqM) Glucose 125 H (74-99) mg/dL Calcium 9.9 (8.4-10.2) mg/dL Total Bilirubin 0.4 (0.2-1.3) mg/dL AST 22 (14-36) U/L ALT 13 (4-34) U/L Alkaline Phosphatase 59 (38-126) U/L Total Protein 8.5 H (6.3-8.2) g/dL Albumin 4.7 (3.5-5.0) g/dL Amylase 71 (30-110) U/L Lipase 56 (23-300) U/L Urine Color Urine Appearance (Clear) Urine pH (5.0-8.0) Ur Specific [place] (1.001-1.035) Urine Protein (Negative) Urine Glucose (UA) (Negative) Urine Ketones (Negative) Urine Blood (Negative) Urine Nitrite (Negative) Urine Bilirubin (Negative) Urine Urobilinogen (<2.0) mg/dL Ur Leukocyte Esterase (Negative) Urine RBC (0-5) /hpf Urine WBC (0-5) /hpf Ur Squamous Epith Cells (0-4) /hpf Urine Bacteria (None) /hpf Urine Mucus (None) /hpf Urine HCG, Qual (Not Detectd) Disposition Clinical Impression: Abdominal pain Disposition: HOME SELF-CARE Condition: Good Instructions (If sedation given, give patient instructions): Abdominal Pain (ED) Prescriptions: Dicyclomine [Bentyl] 20 mg PO QID #15 tablet Is patient prescribed a controlled substance at d/c from ED?: No Referrals: Jarvis Angel DO [Primary Care Provider] - 1-2 days
[2021-09-08 06:59] VITALS: BP 127/84; PULSE 78; RESP 18
== END 2021-09-08 06:36 | disposition home or self-care (01) ==
LOC: EC 02:42
DX: R10.84 Generalized abdominal pain (principal); F41.9 Anxiety disorder, unspecified; F12.90 Cannabis use, unspecified, uncomplicated; Z90.49 Acquired absence of other specified parts of digestive tract
CPT/HCPCS: 99284; 96374; 96375; 36415; 80053; 82150; 83690; 85025; 81001; 81025; 74018; J2765; J1885

== ENCOUNTER 2022-09-30 12:06 | Emergency (ER) | payer BC, OTHER ==
[2022-09-30 12:30] VITALS: TEMP 98.3
--- NOTE | 2022-09-30 13:00 | XR ---
EXAMINATION TYPE: XR chest 2V DATE OF EXAM: 09/30/2022 COMPARISON: None HISTORY: 26-year-old female with chest pain TECHNIQUE: PA and lateral views FINDINGS: The cardiomediastinal silhouette, aorta, and pulmonary vasculature are within normal limits. Lungs an d pleural spaces are clear. IMPRESSION: No acute cardiopulmonary process.
[2022-09-30] MEDS ORDERED: ASPIRIN 81 MG PO STA (17:38)
--- NOTE | 2022-09-30 17:38 | ED ---
Chest Pain HPI - General Chief Complaint: Chest Pain Stated Complaint: chest pain Time Seen by Provider: 09/30/22 17:12 Source: patient Mode of arrival: ambulatory Limitations: no limitations - History of Present Illness Initial Comments: Patient is 26-year-old woman presenting with substernal chest pain that had come on this morning. The patient states that last week she was not feeling well. Both she and her boyfriend had upper respiratory symptoms, including cough congestion and she had ear pain as well. She had taken some medications and was feeling better but today had onset of the substernal chest pain. She states that it was somewhat reminiscent of episodes she had of pneumomediastinum/pneumopericardium which had occurred 5 or 6 years ago. She states that no definite etiology was found, and she did not have to have any procedure related to those conditions. No anginal type symptoms. MD Complaint: chest pain -: hour(s) Onset: during rest Pain Location: substernal Pain Radiation: none Severity: moderate Quality: aching, other (Denying) Consistency: constant Improves With: nothing Worsens With: nothing Context: recent illness Treatments Prior to Arrival: none - Related Data Home Medications Medication Instructions Recorded Confirmed Multivitamins, Thera [Multivitamin 1 tab PO DAILY 03/19/21 03/19/21 (formulary)] Previous Rx's Medication Instructions Recorded Dicyclomine [Bentyl] 20 mg PO QID #15 tablet 09/08/21 Allergies Allergy/AdvReac Type Severity Reaction Status Date / Time nitrofurantoin Allergy Nausea & Verified 09/30/22 12:30 Vomiting Review of Systems ROS Statement: Those systems with pertinent positive or pertinent negative responses have been documented in the HPI. ROS Other: All systems not noted in ROS Statement are negative. Constitutional: Denies: fever, chills ENT: Denies: congestion Respiratory: Denies: cough, dyspnea Cardiovascular: Denies: chest pain, palpitations, edema, syncope Gastrointestinal: Denies: abdominal pain, nausea, vomiting Genitourinary: Denies: dysuria, hematuria Musculoskeletal: Denies: back pain Skin: Denies: rash Neurological: Denies: headache, weakness, numbness EKG Findings - EKG Results: EKG: interpreted by ERMD, sinus rhythm, normal axis, normal QRS EKG shows: tachycardia (Rates 111 bpm) - Blocks, [place], Hypertrophy, ST Abn: Repolarization changes or abnormalities: nonspecific abnormality, ST segment, and/or T wave Past Medical History Past Medical History: No Reported History Additional Past Medical History / Comment(s): Ovarian Cyst, pneuopericardium & pneumomediastinum 2017, mass on colon (believed benign), CDiff 2017, IBS History of Any Multi-Drug Resistant Organisms: C-DIFF Date of last positivie culture/infection: 04/2017 MDRO Source:: stool Past Surgical History: Appendectomy Additional Past Surgical History / Comment(s): colonoscopy with polyp removal Past Psychological History: Anxiety Smoking Status: Never smoker Past Alcohol Use History: Occasional Past Drug Use History: Marijuana General Exam Limitations: no limitations General appearance: alert, in no apparent distress Head exam: Present: atraumatic, normocephalic Eye exam: Present: normal appearance. Absent: scleral icterus, conjunctival injection Neck exam: Present: normal inspection Respiratory exam: Present: normal lung sounds bilaterally. Absent: respiratory distress, wheezes, rales, rhonchi, stridor, accessory muscle use Cardiovascular Exam: Present: regular rate, normal rhythm, normal heart sounds. Absent: systolic murmur, diastolic murmur, rubs, gallop GI/Abdominal exam: Present: soft. Absent: distended, tenderness, guarding, rebound, rigid, mass Extremities exam: Present: normal inspection, normal capillary refill. Absent: pedal edema, calf tenderness Back exam: Present: normal inspection. Absent: CVA tenderness (R), CVA tenderness (L) Neurological exam: Present: alert Skin exam: Present: warm, dry, intact, normal color. Absent: rash Course Vital Signs 09/30/22 09/30/22 09/30/22 12:27 18:30 19:41 Temperature 98.3 F Pulse Rate 110 H 100 101 H Respiratory 18 20 20 Rate Blood Pressure 111/63 106/89 110/70 O2 Sat by Pulse 96 100 97 Oximetry Chest Pain MDM - MDM Discussed findings with patient who does reveal that she had just completed course of steroids that may account for the leukocytosis. I discussed that I felt that the leukocytosis was still somewhat high, and she needs to have this rechecked this week to ensure that it is returning to baseline. We discussed appropriate further care and follow-up as well as return parameters. Disposition Clinical Impression: Leukocytosis Disposition: HOME SELF-CARE Condition: Good Instructions (If sedation given, give patient instructions): Chest Pain (ED), Leukocytosis (ED) Is patient prescribed a controlled substance at d/c from ED?: No Referrals: Jarvis Angel DO [Primary Care Provider] - 1-2 days
[2022-09-30 17:42] LABS: Basophils # (A) 0.1 k/uL (0-0.2); Basophils % (A) 0 %; Eosinophils # (A) 0.2 k/uL (0-0.7); Eosinophils % (A) 1 %; HCT 40.4 % (34.0-46.0); HGB 13.9 gm/dL (11.4-16.0); Lymphocytes # (A) 1.3 k/uL (1.0-4.8); Lymphocytes % (A) 4 %; MCH 31.5 pg (25.0-35.0); MCHC 34.5 g/dL (31.0-37.0); MCV 91.2 fL (80.0-100.0); Mean Platelet Volume 8.3; Monocytes # (A) 0.4 k/uL (0-1.0); Monocytes % (A) 1 %; Neutrophils # (A) 26.6 k/uL (1.3-7.7); Neutrophils % (A) 93 %; Platelet Count 306 k/uL (150-450); RBC 4.43 m/uL (3.80-5.40); RDW 12.2 % (11.5-15.5); WBC 28.6 k/uL (3.8-10.6)
[2022-09-30 17:51] LABS: ALT 19 U/L (4-34); AST 24 U/L (14-36); African American GFR (CKD) >90 (>60 ml/min/1.73 sqM); Albumin 4.7 g/dL (3.5-5.0); Alkaline Phosphatase 71 U/L (38-126); Anion Gap 6 mmol/L; Blood Urea Nitrogen 10 mg/dL (7-17); Calcium 9.5 mg/dL (8.4-10.2); Carbon Dioxide 25 mmol/L (22-30); Chloride 104 mmol/L (98-107); Glucose 112 mg/dL (74-99); Non-African American GFR(CKD) >90 (>60 ml/min/1.73 sqM); Potassium 4.1 mmol/L (3.5-5.1); Sodium 135 mmol/L (137-145); Total Bilirubin 0.6 mg/dL (0.2-1.3); Total Protein 7.9 g/dL (6.3-8.2)
[2022-09-30 18:37] VITALS: RESP 20
[2022-09-30 19:41] VITALS: BP 110/70; PULSE 101
== END 2022-09-30 19:41 | disposition home or self-care (01) ==
LOC: EC 12:06
DX: D72.829 Elevated white blood cell count, unspecified (principal); F41.9 Anxiety disorder, unspecified; F12.90 Cannabis use, unspecified, uncomplicated; Z88.1 Allergy status to other antibiotic agents; Z90.49 Acquired absence of other specified parts of digestive tract
CPT/HCPCS: 36415; 71046; 80053; 85025; 85379; 87040; 87502; 87635; 93005; 99285

== ENCOUNTER → 2022-10-06 | Outpatient (CLI) | payer BC ==
--- NOTE | 2022-10-06 19:22 | CT ---
EXAMINATION TYPE: CT abdomen pelvis wo/w con DATE OF EXAM: 10/06/2022 COMPARISON: None HISTORY: upper and lower abdominal pain. hx of ovarian cysts. CT DLP: 585.40 mGycm Automated exposure control for dose reduction was used. CONTRAST: Performed without and with IV Contrast, patient injected with 90 mL of Isovue 300. Images obtained from the diaphragm to the floor the pelvis without and with IV contrast. The noncontr ast images show no evidence of a renal calculus. Lung bases are clear. No pleural effusion. Heart size is normal. No pericardial effusion. Liver spleen stomach pancreas gallbladder appear intac t. The bile ducts are not dilated. There is no adrenal mass. Kidneys show satisfactory contrast opacification. No hydronephrosis. Ureter s are not dilated. No retroperitoneal adenopathy. The bladder distends smoothly. No inguinal hernia. No free fluid in the pelvis. No pelvic mass. There is no mesenteric edema. No ascites or free air. No sign of a bowel obstruction. There are clips at the cecum consistent with appendectomy. Appendix not seen. Uterus is retroverted. Delayed images show normal renal excretion. The lumbar vertebrae appear intact. No compression fracture. Disc spaces are normal. The bony pelvis is intact. The hip joints are intact. Sacroiliac joints are intact. IMPRESSION: Negative CT scan of the abdomen and pelvis.
== END | disposition home or self-care (01) ==
LOC: RADCTMAIN 17:27
PROVIDERS: ATTEND Family Medicine
DX: R19.8 Other specified symptoms and signs involving the digestive system and abdomen (principal); R10.30 Lower abdominal pain, unspecified
CPT/HCPCS: 74178; Q9967

== ENCOUNTER 2024-02-28 16:00 | Emergency (ER) | payer BC ==
--- NOTE | 2024-02-28 16:29 | ED ---
Abdominal Pain HPI - General Chief Complaint: Abdominal Pain Stated Complaint: Vomiting, abd pain Time Seen by Provider: 02/28/24 16:19 Source: patient, family Mode of arrival: ambulatory Limitations: no limitations - History of Present Illness Initial Comments: 28-year-old female with a past surgical history significant for appendectomy past medical history significant for ovarian cysts presenting to the ED with complaints of generalized abdominal pain, nausea, nonbloody emesis, and 3 episodes of nonbloody diarrhea onset today. Patient also does note some scant vaginal bleeding with this as well. Reports she is not due for her period however does report a history of irregular periods and notes that she just started a new control 3 weeks ago. Associated chills, denies fever. No chest pain or shortness of breath. Denies urinary symptoms. No other complaints at this time. - Related Data Home Medications Medication Instructions Recorded Confirmed Multivitamins, Thera [Multivitamin 1 tab PO DAILY 03/19/21 03/19/21 (formulary)] Previous Rx's Medication Instructions Recorded Dicyclomine [Bentyl] 20 mg PO QID #15 tablet 09/08/21 Ondansetron Odt [Zofran Odt] 4 mg PO Q8HR PRN #10 tab 02/28/24 Allergies Allergy/AdvReac Type Severity Reaction Status Date / Time nitrofurantoin Allergy Nausea & Verified 02/28/24 16:19 Vomiting Review of Systems ROS Statement: Those systems with pertinent positive or pertinent negative responses have been documented in the HPI. ROS Other: All systems not noted in ROS Statement are negative. Past Medical History Past Medical History: No Reported History Additional Past Medical History / Comment(s): Ovarian Cyst, pneuopericardium & pneumomediastinum 2017, mass on colon (believed benign), CDiff 2017, IBS History of Any Multi-Drug Resistant Organisms: C-DIFF Date of last positivie culture/infection: 04/2017 MDRO Source:: stool Past Surgical History: Appendectomy Additional Past Surgical History / Comment(s): colonoscopy with polyp removal Past Psychological History: Anxiety Smoking Status: Former smoker Past Alcohol Use History: Occasional Past Drug Use History: Marijuana General Exam Limitations: no limitations General appearance: alert Eye exam: Present: normal appearance Neck exam: Present: normal inspection Respiratory exam: Present: normal lung sounds bilaterally Cardiovascular Exam: Present: tachycardia GI/Abdominal exam: Present: soft (Diffuse abdominal tenderness to palpation. No rebound guarding or rigidity. Bowel sounds present.) Neurological exam: Present: alert, oriented X3 Skin exam: Present: warm, dry Course Vital Signs 02/28/24 02/28/24 16:11 18:19 Temperature 98.1 F Pulse Rate 119 H 100 Respiratory 18 18 Rate Blood Pressure 100/67 116/71 O2 Sat by Pulse 100 100 Oximetry Medical Decision Making - Medical Decision Making Was pt. sent in by a medical professional or institution (, PA, MANAGER OF DATA, urgent care, hospital, or [facility]...) When possible be specific @ -No Did you speak to anyone other than the patient for history (EMS, parent, family, police, friend...)? What history was obtained from this source @ -No Did you review nursing and triage notes (agree or disagree)? Why? @ -I reviewed and agree with nursing and triage notes Were old charts reviewed (outside hosp., previous admission, EMS record, old E KG, old radiological studies, urgent care reports/EKG's, [facility] records)? Report findings @ -No old charts were reviewed Differential Diagnosis (chest pain, altered mental status, abdominal pain women, abdominal pain men, vaginal bleeding, weakness, fever, dyspnea, syncope, headache, dizziness, GI bleed, back pain, seizure, CVA, palpatations, mental health, musculoskeletal)? @ -Differential Abdominal Pain Women: Appendicitis, Cholecystitis, diverticulosis, ischemic bowel, pancreatitis, hepatitis, UTI, gastroenteritis, AAA, incarcerated hernia, bowel obstruction, constipation, inflammatory bowel, hepatitis, peptic ulcer disease, splenic infarction, perforated viscus, vulvitis, ovarian torsion, PID, kidney stone, placenta abruption, this is not meant to be an all-inclusive list EKG interpreted by me (3pts min.). @ -None X-rays interpreted by me (1pt min.). @ -None done CT interpreted by me (1pt min.). @ -CT abdomen pelvis with contrast interpreted by me which shows fluid-filled loops of small bowel and colon concerning for gastroenteritis. No other findings. U/S interpreted by me (1pt. min.). @ -Transvaginal ultrasound interpreted me which reveals no evidence of acute finding. What testing was considered but not performed or refused? (CT, X-rays, U/S, labs)? Why? @ -None What meds were considered but not given or refused? Why? @ -None Did you discuss the management of the patient with other professionals (professionals i.e. , PA, MANAGER OF DATA, lab, RT, psych nurse, social worker masters, manager solution, teacher, chairman & chief executive officer, case briefer)? Give summary @ -No Was smoking cessation discussed for >3mins.? @ -No Was critical care preformed (if so, how long)? @ -No Were there social determinants of health that impacted care today? How? (Homelessness, low income, unemployed, alcoholism, drug addiction, transportation, low edu. Level, literacy, decrease access to med. care, senior care, rehab)? @ -No Was there de-escalation of care discussed even if they declined (Discuss DNR or withdrawal of care, Hospice)? DNR status @ -No What co-morbidities impacted this encounter? (DM, HTN, Smoking, COPD, CAD, Can cer, CVA, ARF, Chemo, Hep., AIDS, mental health diagnosis, sleep apnea, morbid obesity)? @ -None Was patient admitted / discharged? Hospital course, mention meds given and route, prescriptions, significant lab abnormalities, going to OR and other pertinent info. @ -Discharge 28-year-old female presented to the ED with 1 day onset of diffuse abdominal pain, nausea, vomiting, diarrhea, and some scant vaginal bleeding. Laboratory studies reviewed. Largely unremarkable. Lactic was elevated at 3.3 however. UA shows no significant evidence of infection. Transvaginal ultrasound revealed no evidence of acute finding. CT abdomen pelvis with contrast shows findings concerning for gastroenteritis consistent with patient's symptoms. Patient provided IV fluids, analgesia, and antiemetics and reports feeling significantly improved. Discharged home in stable condition with prescription for Zofran. Advise close follow-up with her PCP. Discussed return precautions with patient and her mother who verbalized agreement. Undiagnosed new problem with uncertain prognosis? @ -No Drug Therapy requiring intensive monitoring for toxicity (Heparin, Nitro, Insulin, Cardizem)? @ -No Were any procedures done? @ -No Diagnosis/symptom? @ -Gastroenteritis Acute, or Chronic, or Acute on Chronic? @ -Acute Uncomplicated (without systemic symptoms) or Complicated (systemic symptoms)? @ -Uncomplicated Side effects of treatment? @ -No Exacerbation, Progression, or Severe Exacerbation? @ -No Poses a threat to life or bodily function? How? (Chest pain, [place], [place], pneumonia, PE, COPD, DKA, ARF, appy, cholecystitis, CVA, Diverticulitis, Homicidal, Suicidal, threat to staff... and all critical care pts) @ -No - Lab Data Result diagrams: 02/28/24 17:37 02/28/24 17:37 Lab Results 02/28/24 02/28/24 02/28/24 Range/Units 17:01 17:01 17:01 WBC (3.8-10.6) k/uL RBC (3.80-5.40) m/uL Hgb (11.4-16.0) gm/dL Hct (34.0-46.0) % MCV (80.0-100.0) fL MCH (25.0-35.0) pg MCHC (31.0-37.0) g/dL RDW (11.5-15.5) % Plt Count (150-450) k/uL MPV Neutrophils % % Lymphocytes % % Monocytes % % Eosinophils % % Basophils % % Neutrophils # (1.3-7.7) k/uL Lymphocytes # (1.0-4.8) k/uL Monocytes # (0-1.0) k/uL Eosinophils # (0-0.7) k/uL Basophils # (0-0.2) k/uL Sodium (137-145) mmol/L Potassium (3.5-5.1) mmol/L Chloride (98-107) mmol/L Carbon Dioxide (22-30) mmol/L Anion Gap mmol/L BUN (7-17) mg/dL Creatinine (0.52-1.04) mg/dL Est GFR (CKD-EPI)AfAm (>60 ml/min/1.73 sqM) Est GFR (CKD-EPI)NonAf (>60 ml/min/1.73 sqM) Glucose (74-99) mg/dL Plasma Lactic Acid Ricky (0.7-2.0) mmol/L Calcium (8.4-10.2) mg/dL Total Bilirubin (0.2-1.3) mg/dL AST (14-36) U/L ALT (4-34) U/L Alkaline Phosphatase (38-126) U/L Total Protein (6.3-8.2) g/dL Albumin (3.5-5.0) g/dL Urine Color Yellow Urine Appearance Clear (Clear) Urine pH 5.5 (5.0-8.0) Ur Specific [place] 1.027 (1.001-1.035) Urine Protein Trace H (Negative) Urine Glucose (UA) Negative (Negative) Urine Ketones 2+ H (Negative) Urine Blood Moderate H (Negative) Urine Nitrite Negative (Negative) Urine Bilirubin Negative (Negative) Urine Urobilinogen <2.0 (<2.0) mg/dL Ur Leukocyte Esterase Negative (Negative) Urine RBC 1 (0-5) /hpf Urine WBC 1 (0-5) /hpf Ur Squamous Epith Cells 1 (0-4) /hpf Urine Mucus Few H (None) /hpf Urine HCG, Qual Not Detected (Not Detectd) Influenza Type A (PCR) Not Detected (Not Detectd) Influenza Type B (PCR) Not Detected (Not Detectd) RSV (PCR) Not Detected (Not Detectd) SARS-CoV-2 (PCR) Not Detected (Not Detectd) 02/28/24 02/28/24 02/28/24 Range/Units 17:37 17:37 17:37 WBC 10.1 (3.8-10.6) k/uL RBC 5.44 H (3.80-5.40) m/uL Hgb 16.1 H (11.4-16.0) gm/dL Hct 50.2 H (34.0-46.0) % MCV 92.3 (80.0-100.0) fL MCH 29.6 (25.0-35.0) pg MCHC 32.1 (31.0-37.0) g/dL RDW 12.6 (11.5-15.5) % Plt Count 339 (150-450) k/uL MPV 7.1 Neutrophils % 93 % Lymphocytes % 3 % Monocytes % 2 % Eosinophils % 1 % Basophils % 0 % Neutrophils # 9.5 H (1.3-7.7) k/uL Lymphocytes # 0.3 L (1.0-4.8) k/uL Monocytes # 0.2 (0-1.0) k/uL Eosinophils # 0.1 (0-0.7) k/uL Basophils # 0.0 (0-0.2) k/uL Sodium 140 (137-145) mmol/L Potassium 4.1 (3.5-5.1) mmol/L Chloride 110 H (98-107) mmol/L Carbon Dioxide 16 L (22-30) mmol/L Anion Gap 14 mmol/L BUN 17 (7-17) mg/dL Creatinine 0.57 (0.52-1.04) mg/dL Est GFR (CKD-EPI)AfAm >90 (>60 ml/min/1.73 sqM) Est GFR (CKD-EPI)NonAf >90 (>60 ml/min/1.73 sqM) Glucose 122 H (74-99) mg/dL Plasma Lactic Acid Ricky 3.0 H* (0.7-2.0) mmol/L Calcium 9.2 (8.4-10.2) mg/dL Total Bilirubin 0.8 (0.2-1.3) mg/dL AST 35 (14-36) U/L ALT 37 H (4-34) U/L Alkaline Phosphatase 54 (38-126) U/L Total Protein 8.4 H (6.3-8.2) g/dL Albumin 4.7 (3.5-5.0) g/dL Urine Color Urine Appearance (Clear) Urine pH (5.0-8.0) Ur Specific [place] (1.001-1.035) Urine Protein (Negative) Urine Glucose (UA) (Negative) Urine Ketones (Negative) Urine Blood (Negative) Urine Nitrite (Negative) Urine Bilirubin (Negative) Urine Urobilinogen (<2.0) mg/dL Ur Leukocyte Esterase (Negative) Urine RBC (0-5) /hpf Urine WBC (0-5) /hpf Ur Squamous Epith Cells (0-4) /hpf Urine Mucus (None) /hpf Urine HCG, Qual (Not Detectd) Influenza Type A (PCR) (Not Detectd) Influenza Type B (PCR) (Not Detectd) RSV (PCR) (Not Detectd) SARS-CoV-2 (PCR) (Not Detectd) Disposition Clinical Impression: Gastroenteritis Disposition: HOME SELF-CARE Condition: Good Instructions (If sedation given, give patient instructions): Gastroenteritis (ED) Additional Instructions: Please return to the Emergency Department if symptoms worsen or any other concerns. Please follow-up with your PCP. Prescriptions: Ondansetron Odt [Zofran Odt] 4 mg PO Q8HR PRN #10 tab PRN Reason: Nausea Is patient prescribed a controlled substance at d/c from ED?: No Referrals: Jarvis Angel DO [Primary Care Provider] - 1-2 days Time of Disposition: 18:45
[2024-02-28 16:54] VITALS: RESP 18; TEMP 98.1
[2024-02-28 17:08] LABS: Appearance,Urine Clear (Clear); Bilirubin,Urine Negative (Negative); Blood,Urine Moderate (Negative); Color,Urine Yellow; Glucose,Urine (UA) Negative (Negative); Ketones,Urine 2+ (Negative); Leukocyte Esterase,Urine Negative (Negative); Mucus,Urine Few /hpf; Nitrite,Urine Negative (Negative); PH, Urine 5.5 (5.0-8.0); Protein,Urine Trace (Negative); RBC,Urine 1 /hpf (0-5); Specific Gravity,Urine 1.027 (1.001-1.035); Squamous Epithelial Cell,Urine 1 /hpf (0-4); Urobilinogen,Urine <2.0 mg/dL (<2.0); WBC,Urine 1 /hpf (0-5)
[2024-02-28] MEDS: KETOROLAC 15 MG/ML 1 ML VIAL IVP STA (17:32)
[2024-02-28] MEDS: SODIUM CHLORIDE 0.9% 2,000 ML IV STA (17:34)
[2024-02-28] MEDS: ONDANSETRON 4 MG/2 ML VIAL IVP STA (17:34)
[2024-02-28 17:42] LABS: Basophils % (A) 0 %; Eosinophils # (A) 0.1 k/uL (0-0.7); Eosinophils % (A) 1 %; HCT 50.2 % (34.0-46.0); HGB 16.1 gm/dL (11.4-16.0); Lymphocytes # (A) 0.3 k/uL (1.0-4.8); Lymphocytes % (A) 3 %; MCH 29.6 pg (25.0-35.0); MCHC 32.1 g/dL (31.0-37.0); MCV 92.3 fL (80.0-100.0); Mean Platelet Volume 7.1; Monocytes # (A) 0.2 k/uL (0-1.0); Monocytes % (A) 2 %; Neutrophils # (A) 9.5 k/uL (1.3-7.7); Neutrophils % (A) 93 %; Platelet Count 339 k/uL (150-450); RBC 5.44 m/uL (3.80-5.40); RDW 12.6 % (11.5-15.5); WBC 10.1 k/uL (3.8-10.6)
[2024-02-28 18:11] LABS: ALT 37 U/L (4-34); African American GFR (CKD) >90 (>60 ml/min/1.73 sqM); Albumin 4.7 g/dL (3.5-5.0); Anion Gap 14 mmol/L; Blood Urea Nitrogen 17 mg/dL (7-17); Calcium 9.2 mg/dL (8.4-10.2); Carbon Dioxide 16 mmol/L (22-30); Chloride 110 mmol/L (98-107); Glucose 122 mg/dL (74-99); Non-African American GFR(CKD) >90 (>60 ml/min/1.73 sqM); Sodium 140 mmol/L (137-145); Total Bilirubin 0.8 mg/dL (0.2-1.3); Total Protein 8.4 g/dL (6.3-8.2)
--- NOTE | 2024-02-28 18:11 | CT ---
EXAMINATION TYPE: CT abdomen pelvis w con DATE OF EXAM: 02/28/2024 COMPARISON: 10/06/2022 INDICATION: Generalized abdominal pain, N/V/D. DLP: 648 mGycm, Automated exposure control for dose reduction was used. CONTRAST: 100 mL of Isovue 300. Study performed without Oral Contrast TECHNIQUE: Axial images were obtained from above the diaphragm to the pubic rami in the axial plane a t 5 mm thick sections. Reconstructed images are reviewed on the computer in the coronal plane. FINDINGS: Limited CT sections are obtained the lung bases. The lung bases are clear. CT ABDOMEN: Liver: Normal Spleen: Normal Pancreas: Normal Adrenal glands: The adrenal glands are normal. Gallbladder: Normal Kidneys: No masses are evident. No hydronephrosis is present. No cysts are present. Delayed images were obtained through the kidneys, which remain unremarkable. Aorta: Normal Inferior vena cava: Normal. CT PELVIS: There are fluid-filled small bowel loops. Colon contains fluid. Correlate for gastroenteritis. Study is without oral contrast. Appendix: There may have been a prior appendectomy. Urinary bladder: Normal. Genitourinary structures: Uterus appears normal in the left hemipelvis. Adnexa are normal. Osseous structures: No suspicious lytic or sclerotic lesions. IMPRESSION: 1. Fluid-filled loops of small bowel and colon. Correlate for gastroenteritis. Ileus is considered l ess likely. No obstruction is identified.
[2024-02-28 18:16] LABS: AST 35 U/L (14-36); Alkaline Phosphatase 54 U/L (38-126); Potassium 4.1 mmol/L (3.5-5.1)
[2024-02-28] MEDS: ACETAMINOPHEN TAB 500 MG TAB PO STA (18:20)
--- NOTE | 2024-02-28 18:30 | US ---
EXAMINATION TYPE: US transvaginal DATE OF EXAM: 02/28/2024 COMPARISON: CT: Today, US: 03/19/21 CLINICAL INDICATION: Female, 28 years old with history of gen abdominal pain vaginal bleeding; genera lized abd pain. Bleeding today (on period) TECHNIQUE: Transvaginal (TV). Date of LMP: 02/25/24 EXAM MEASUREMENTS: Uterus: 7.0 x 3.9 x 4.1 cm Endometrial Stripe: 1.0 cm Right Ovary: 2.6 x 2.2 x1.3 cm Left Ovary: 2.2 x 1.2 x 1.2 cm 1. Uterus: Retroverted wnl 2. Endometrium: wnl 3. Right Ovary: wnl 4. Left Ovary: wnl Spectral, color and waveform doppler imaging shows good arterial and venous flow within the ovaries ; there is no evidence for ovarian torsion. 5. Bilateral Adnexa: Fluid filled bowel seen 6. Posterior cul-de-sac: wnl IMPRESSION: 1. Unremarkable pelvic ultrasound
[2024-02-28 18:49] VITALS: BP 116/71; PULSE 100
== END 2024-02-28 19:01 | disposition home or self-care (01) ==
LOC: EC 16:00
DX: K52.9 Noninfective gastroenteritis and colitis, unspecified (principal); F12.90 Cannabis use, unspecified, uncomplicated; Z87.891 Personal history of nicotine dependence; Z88.8 Allergy status to other drugs, medicaments and biological substances
CPT/HCPCS: 36415; 80053; 83605; 85025; 81001; 81025; 87636; 93975; 76830; 74177; 99284; 96374; 96375; 96361; J2405; J1885; Q9967

== ENCOUNTER → 2024-10-30 | Outpatient (CLI) | payer BC ==
--- NOTE | 2024-10-30 09:14 | US ---
EXAMINATION TYPE: US abdomen complete DATE OF EXAM: 10/30/2024 COMPARISON: CT abdomen and pelvis 02/28/2024, 10/06/2022, abdominal ultrasound 07/30/2018 CLINICAL INDICATION: Female, 28 years old with history of R10.9 Unspecified abdominal pain; acid refl ux, general abd pain TECHNIQUE: Grayscale and color Doppler imaging of the abdomen was performed. FINDINGS: EXAM MEASUREMENTS: Liver Length: 15.0 cm Gallbladder Wall: 0.2 cm CBD: 0.5 cm, color Doppler imaging was utilized to isolate the common bile duct for measurement. Spleen: 8.7 cm Right Kidney: 9.4 x 4.1 x 4.8 cm Left Kidney: 10.4 x 4.3 x 5.3cm Pancreas: wnl Liver: wnl Gallbladder: wnl Evidence for sonographic [place]'s sign: no CBD: wnl Spleen: wnl Right Kidney: wnl Left Kidney: wnl Upper IVC: wnl Abd Aorta: wnl The liver is homogenous. The intrahepatic portion of the IVC and proximal abdominal aorta are within normal limits. There is no evidence of cholelithiasis. Common bile duct is unremarkable. The visu alized portions of the pancreas are homogenous. The spleen is unremarkable. Kidneys are symmetric a nd free of hydronephrosis. No renal lesions are seen. IMPRESSION: Unremarkable abdominal ultrasound. [facility], , 10/30/2024 9:11 AM
== END | disposition home or self-care (01) ==
LOC: RADUSWWP 06:53
PROVIDERS: ATTEND Family Medicine
DX: K21.9 Gastro-esophageal reflux disease without esophagitis (principal); R10.9 Unspecified abdominal pain
CPT/HCPCS: 76700